=== PATIENT | female | born 1965 | race Two or more races ===

== ENCOUNTER 2017-06-27 09:46 | Emergency (ER) | payer MEDICAID, OTHER ==
[~2017-06-27] VITALS: Ht 154.9 cm; Wt 86.6 kg
[2017-06-27 11:49] VITALS: BP 167/99
[2017-06-27] MEDS ORDERED: cefTRIAXone SOD 1,000 MG VL IM ONE (13:00)
== END 2017-06-27 13:36 | disposition home or self-care (01) ==
LOC: ER 09:46
DX: H66.92 Otitis media, unspecified, left ear (principal); F17.210 Nicotine dependence, cigarettes, uncomplicated; Z98.51 Tubal ligation status
CPT/HCPCS: 96372; 99283; J0696

== ENCOUNTER 2020-01-14 10:28 | Emergency (ER) | payer OTHER ==
[~2020-01-14] VITALS: Ht 157.5 cm; Wt 92.5 kg
[2020-01-14] MEDS ORDERED: ceFAZolin 1GM/50ML 50 ML IV ONE (11:36)
[2020-01-14] MEDS ORDERED: TETRACAINE HCL 0.5% OPTH(EYE) SOLN 4ML RIGHTEYE ONE (13:30)
[2020-01-14] MEDS ORDERED: FLUORESCEIN SOD 1 MG TEST STRIP RIGHTEYE ONE (13:30)
[2020-01-14 13:48] VITALS: BP 134/74
== END 2020-01-14 13:53 | disposition home or self-care (01) ==
LOC: ER 10:30
DX: H10.9 Unspecified conjunctivitis (principal)
CPT/HCPCS: 99283; J0690

== ENCOUNTER 2021-04-24 10:56 | Emergency (ER) | payer OTHER ==
[~2021-04-24] VITALS: Ht 157.5 cm; Wt 96.2 kg
[2021-04-24] MEDS ORDERED: MORPHINE SULFATE 4 MG/ML SYR/VIAL IV ONE (11:30)
[2021-04-24] MEDS ORDERED: SODIUM CHLORIDE 0.9% 500 ML IVB ONE (11:30)
[2021-04-24] MEDS ORDERED: ONDANSETRON HCL 4 MG/2 ML VIAL IV ONE (11:30)
[2021-04-24 12:04] LABS: Urine Bacteria NONE SEEN /hpf (None Seen); Urine Blood Negative /uL (Negative); Urine Mucus FEW (None Seen); Urine WBC 1 /hpf (0 - 5)
[2021-04-24 14:36] LABS: Basophils # (auto) 0.1 10 ^3/uL (0-0.2); Basophils % (auto) 1.4 % (0.0-2.0); Eosinophils # (auto) 0.3 10 ^3/uL (0-0.8); Eosinophils % (auto) 5.3 % (0.0-7.0); Hematocrit 40.6 % (36.0-46.0); Lymphocytes # (auto) 1.5 10 ^3/uL (0.4-5.4); Lymphocytes % (auto) 26.3 % (10.0-50.0); Mean Corpuscular Hemoglobin 27.5 pg (28.0-32.0); Mean Corpuscular Hgb Conc. 34.5 g/dL (32.0-36.0); Mean Corpuscular Volume 79.7 fL (80.0-100.0); Monocytes # (auto) 0.7 10 ^3/uL (0-1.3); Monocytes % (auto) 11.4 % (0.0-12.0); Neutrophils # (auto) 3.2 10 ^3/uL (1.6-8.6); Neutrophils % (auto) 55.6 % (37.0-80.0); Nucleated Red Blood Cells % 0.2 %; Platelet Count (auto) 338 10^3/uL (140-450); Red Cell Distribution Width 14.4 % (11.8-14.3); White Blood Cell 5.8 10^3/uL (4.4-10.8)
[2021-04-24 14:55] LABS: Albumin 4.2 g/dL (3.4-5.0); Calcium 9.5 mg/dL (8.5-10.1)
[2021-04-24 14:58] LABS: BUN/Creatinine Ratio 23.2; Bilirubin, Total 0.4 mg/dL (0.2-1.0); Total Protein 8.6 g/dL (6.4-8.2)
[2021-04-24 15:43] VITALS: BP 140/95
== END 2021-04-24 15:44 | disposition home or self-care (01) ==
LOC: ER 10:56
DX: R10.11 Right upper quadrant pain (principal); I10 Essential (primary) hypertension; E78.5 Hyperlipidemia, unspecified; F17.210 Nicotine dependence, cigarettes, uncomplicated; Z90.710 Acquired absence of both cervix and uterus; Z90.89 Acquired absence of other organs
CPT/HCPCS: 36415; 71046; 76705; 80053; 81001; 82150; 83690; 85025; 85049; 93005

== ENCOUNTER 2022-07-16 09:03 | Emergency (ER) | payer OTHER ==
[~2022-07-16] VITALS: Ht 157.5 cm; Wt 90.0 kg
[2022-07-16 09:40] VITALS: BP 164/100
[2022-07-16] MEDS ORDERED: KETOROLAC TROMETH 60MG/2ML VIAL IM ONE (09:45)
[2022-07-16] MEDS ORDERED: PRED20TA2 PO (10:12)
== END 2022-07-16 10:19 | disposition home or self-care (01) ==
LOC: ER 09:03
DX: S83.92XA Sprain of unspecified site of left knee, initial encounter (principal); I10 Essential (primary) hypertension; E78.5 Hyperlipidemia, unspecified; F17.210 Nicotine dependence, cigarettes, uncomplicated; Z90.710 Acquired absence of both cervix and uterus; Z90.89 Acquired absence of other organs; Z79.899 Other long term (current) drug therapy; X58.XXXA Exposure to other specified factors, initial encounter; Y93.89 Activity, other specified; Y92.89 Other specified places as the place of occurrence of the external cause; Y99.8 Other external cause status
CPT/HCPCS: 73562; 96372; 99283; J1885

== ENCOUNTER 2022-12-31 13:29 | Emergency (ER) | payer OTHER ==
[~2022-12-31] VITALS: Ht 157.5 cm; Wt 94.6 kg
[~2022-12-31 13:29] MED LIST: PRED20TA2 PO
[2022-12-31] MEDS ORDERED: cloNIDine HCL 0.1 MG TAB PO ONE (15:00)
[2022-12-31 15:20] LABS: Urine Bacteria NONE SEEN /hpf (None Seen); Urine Blood Negative /uL (Negative); Urine Specific Gravity 1.005 (1.001-1.035); Urine WBC 1 /hpf (0 - 5)
[2022-12-31 15:33] LABS: Basophils # (auto) 0.1 10 ^3/uL (0-0.2); Eosinophils # (auto) 0.1 10 ^3/uL (0-0.8); Hemoglobin 14.5 g/dL (12.2-16.2); Lymphocytes # (auto) 0.7 10 ^3/uL (0.4-5.4)
[2022-12-31 15:36] LABS: Basophils % (auto) 1.4 % (0.0-2.0); Eosinophils % (auto) 1.2 % (0.0-7.0); Hematocrit 44.2 % (36.0-46.0); Lymphocytes % (auto) 9.1 % (10.0-50.0); Mean Corpuscular Hemoglobin 25.4 pg (28.0-32.0); Mean Corpuscular Hgb Conc. 32.9 g/dL (32.0-36.0); Mean Corpuscular Volume 77.3 fL (80.0-100.0); Monocytes # (auto) 0.5 10 ^3/uL (0-1.3); Monocytes % (auto) 7.5 % (0.0-12.0); Neutrophils # (auto) 5.9 10 ^3/uL (1.6-8.6); Neutrophils % (auto) 80.8 % (37.0-80.0); Nucleated Red Blood Cells % 0.2 %; Red Blood Cells 5.72 10^6/uL (4.0-5.20); Red Cell Distribution Width 14.4 % (11.8-14.3); White Blood Cell 7.3 10^3/uL (4.4-10.8)
[2022-12-31 16:00] VITALS: BP 142/91
[2022-12-31 16:03] LABS: BUN/Creatinine Ratio 15.1; Calcium 9.9 mg/dL (8.5-10.1); Potassium 4.4 mmol/L (3.5-5.1)
[2022-12-31] MEDS ORDERED: BACDST PO (16:18)
[2022-12-31] MEDS ORDERED: LOSA-69 PO (16:18)
== END 2022-12-31 16:25 | disposition home or self-care (01) ==
LOC: ER 13:29
DX: I10 Essential (primary) hypertension (principal); N39.0 Urinary tract infection, site not specified; E78.5 Hyperlipidemia, unspecified; F17.210 Nicotine dependence, cigarettes, uncomplicated; Z90.89 Acquired absence of other organs; Z90.710 Acquired absence of both cervix and uterus; Z79.899 Other long term (current) drug therapy
CPT/HCPCS: 36415; 80048; 81001; 84484; 85025; 93005

== ENCOUNTER 2024-03-22 14:35 | Emergency (ER) | payer OTHER ==
[~2024-03-22] VITALS: Ht 157.5 cm; Wt 100.0 kg
[~2024-03-22 14:35] MED LIST changes: +BACDST PO; +LEVO500T91 PO; +LOSA-534 PO; +PRED10TA PO
[2024-03-22 15:36] LABS: Basophils # (auto) 0.1 10 ^3/uL (0-0.2); Basophils % (auto) 1.2 % (0.0-2.0); Eosinophils # (auto) 0.4 10 ^3/uL (0-0.8); Eosinophils % (auto) 4.2 % (0.0-7.0); Hematocrit 40.4 % (36.0-46.0); Hemoglobin 13.5 g/dL (12.2-16.2); Lymphocytes # (auto) 1.3 10 ^3/uL (0.4-5.4); Lymphocytes % (auto) 15.5 % (10.0-50.0); Mean Corpuscular Hemoglobin 27.5 pg (28.0-32.0); Mean Corpuscular Hgb Conc. 33.5 g/dL (32.0-36.0); Mean Corpuscular Volume 82.1 fL (80.0-100.0); Monocytes # (auto) 0.9 10 ^3/uL (0-1.3); Monocytes % (auto) 10.5 % (0.0-12.0); Neutrophils # (auto) 5.8 10 ^3/uL (1.6-8.6); Neutrophils % (auto) 68.6 % (37.0-80.0); Red Blood Cells 4.92 10^6/uL (4.0-5.20); Red Cell Distribution Width 14.8 % (11.8-14.3); White Blood Cell 8.4 10^3/uL (4.4-10.8)
[2024-03-22 15:45] LABS: Chloride 110 mmol/L (98-107); Potassium 3.7 mmol/L (3.5-5.1); Sodium 142 mmol/L (136-145)
[2024-03-22 15:46] LABS: Anion Gap 6 (5-15); Calcium 10.1 mg/dL (8.5-10.1); Carbon Dioxide 26 mmol/L (20-30)
[2024-03-22 15:51] LABS: BUN/Creatinine Ratio 10.5 (10.0-20.0); Blood Urea Nitrogen 9 mg/dL (9-23); Glucose 123 mg/dL (74-106)
[2024-03-22] MEDS ORDERED: IBUP-1455 PO (16:11)
[2024-03-22 17:24] VITALS: BP 139/75; PULSE 95; RESP 20; TEMP 98.5; O2SAT 100
[2024-03-22] MEDS: DexAMETHasone SOD PHOS 10MG/1ML VIAL INJ IM ONE (17:41)
[2024-03-22] MEDS: KETOROLAC TROMETH 60MG/2ML VIAL IM ONE (17:42)
== END 2024-03-22 17:47 | disposition home or self-care (01) ==
LOC: ER 14:35
DX: M25.561 Pain in right knee (principal); R60.9 Edema, unspecified; E11.9 Type 2 diabetes mellitus without complications; I10 Essential (primary) hypertension; F17.210 Nicotine dependence, cigarettes, uncomplicated; Z90.710 Acquired absence of both cervix and uterus; Z98.51 Tubal ligation status
CPT/HCPCS: 36415; 73562; 80048; 83880; 85025; 96372; 99284; J1100; J1885

== ENCOUNTER 2024-10-11 08:56 | Emergency (ER) | payer OTHER ==
[~2024-10-11] VITALS: Ht 157.5 cm; Wt 101.8 kg
[~2024-10-11 08:56] MED LIST changes: +IBUP-1455 PO
--- NOTE | 2024-10-11 09:25 | ED.PDOC ---
[place]. trauma (HPI) HPI Comments 59 year old female presents to the ED with chief complaint of fall. Patient reports that she had been showering around 4am when she begun to experience dizziness, lost balance, then fell, injuring her left hand, left forearm, and back. Patient relays that she is now unable to stand without dizziness. Patient states she now has some SOB and mild leg swelling that she has noticed since onset of symptoms. Patient denies any chest pain, cough, N/V/D, dizziness, headache, or fever. Chief Complaint: Fall Injury Time Seen by MD: 09:22 Primary Care Provider: ADRIANNA Reviewed notes: Nurses Notes, Medications, Allergies Allergies: Coded Allergies: NO KNOWN ALLERGIES (Unverified , 03/22/15) Home Meds Active Scripts Levofloxacin Hemihydrate (LEVOFLOXACIN) 500 Mg Tab, 500 MG PO DAILY for 7 Days, #7 MG Prov:CATALINO RAMIREZ MD 10/11/24 Ibuprofen Micronized (Ibuprofen) 800 Mg Tab, 800 MG PO Q8HP PRN, #20 TAB Prov:DESIRE MOHAMUD 03/22/24 Prednisone (Prednisone) 10 Mg Tab, 10 MG PO DAILY for 7 Days, #7 MG Prov:CATALINO RAMIREZ MD 06/15/23 Levofloxacin Hemihydrate (LEVAQUIN 500 MG) 500 Mg Tab, 1 TAB PO DAILY, #10 TAB Prov:CATALINO RAMIREZ MD 06/15/23 Losartan Potassium (Losartan Potassium) 50 Mg Tab, 1 TAB PO DAILY, #30 TAB 5 Refills Prov:DAYSI DELGADO 12/31/22 Sulfamethoxazole W/Trimethopri (Bactrim Ds Tablet) 1 Tab Tb, 1 TAB PO BID for 5 Days, #10 TAB Prov:DAYSI DELGADO 12/31/22 Prednisone (Prednisone) 20 Mg Tab, 40 MG PO DAILY, #20 MG Prov:DAYSI DELGADO 07/16/22 Information Source: Patient Mode of Arrival: Wheelchair Severity: Moderate Timing: Hours Duration: Since onset Prehospital treatment: None Location: Back, (L) Forearm, (L) Hand Location of laceration: None Mechanism: Fall Past Medical History PAST MEDICAL HISTORY: High Lipids, HTN Past Medical History (Other): Sarcoidosis Surgical History: , Hysterectomy, Tonsillectomy, Tubal Ligation HOME CARE AIDE History: No Pertinent HOME CARE AIDE History Family History Family History: Family hx of DM, Family hx of heart travis Social History Smoker: Cigarettes Alcohol: Occasionally Drugs: Denies Drug Use Lives In: Home Constitutional: denies: chills, diaphoresis, fatigue, fever, malaise, sweats, weakness, others EENTM: denies: blurred vision, double vision, ear bleeding, ear discharge, ear drainage, ear pain, ear ringing, eye pain, eye redness, hearing loss, mouth pain, mouth swelling, nasal discharge, nose bleeding, nose congestion, nose pain, photophobia, tearing, throat pain, throat swelling, voice changes, others Respiratory: reports: shortness of breath; denies: cough, hemoptysis, orthopnea, SOB at rest, SOB with excertion, stridor, wheezing, others Cardiovascular: reports: edema (Bilateral legs); denies: chest pain, dizzy spells, diaphoresis, Dyspnea on exertion, irregular heart beat, left arm pain, lightheadedness, palpitations, PND, syncope, others Gastrointestinal: denies: abdomen distended, abdominal pain, blood streaked bowels, constipated, diarrhea, dysphagia, difficulty swallowing, hematemesis, melena, nausea, poor appetite, poor fluid intake, rectal bleeding, rectal pain, vomiting, others Genitourinary: denies: abnormal vagina bleeding, burning, dyspareunia, dysuria, flank pain, frequency, hematuria, incontinence, pain, , vagina discharge, urgency, others Neurological: reports: dizziness; denies: fainting, headache, left sided numbness, left sided weakness, numbness, paresthesia, pre-existing deficit, right sided numbness, right sided weakness, seizure, speech problems, tingling, tremors, weakness, others Musculoskeletal: reports: back pain, others (Left hand and forearm pain); denies: gout, joint pain, joint swelling, muscle pain, muscle stiffness, neck pain Integumetry: denies: bruises, change in color, change in hair/nails, dryness, laceration, lesions, lumps, rash, wounds, others Allergic/Immunocompromised: denies: Difficulty Healing, Frequent Infections, Hives, Itching, others Hematologic/Lymphatic: denies: anemia, blood clots, easy bleeding, easy bruising, swollen glands, others Endocrine: denies: excessive hunger, excessive sweating, excessive thirst, excessive urination, flushing, intolerance to cold, intolerance to heat, unexplained weight gain, unexplained weight loss, others Psychiatric: denies: anxiety, bipolar disorder, depression, hopeless, panic disorder, schizophrenia, sleepless, suicidal, others All Other Systems: Reviewed and Negative Physical Exam General Appearance: Moderate Distress, Normal HEENT: Normal ENT Inspection, PERRL/EOMI Neck: Full Range of Motion, Non-Tender, Normal, Normal Inspection Respiratory: Chest Non-Tender, Lungs Clear, No Accessory Muscle Use, No Respiratory Distress, Normal Breath Sounds Cardiovascular: No Edema, No JVD, No Murmur, No Gallop, Normal Peripheral Pulses, Regular Rate/Rhythm Breast Exam: Deferred Gastrointestinal: No Organomegaly, Non Tender, No Pulsatile Mass, Normal Bowel Sounds, Soft Genitalia: Deferred Pelvic: Deferred Rectal: Deferred Extremities: No calf tenderness, Normal capillary refill, Normal range of motion, Non-tender, Pedal edema Musculoskeletal : Apperance: Normal Neurologic: Alert, search engine marketing manager II-XII nml as Tested, No Motor Deficits, Normal Affect, Normal Mood, No Sensory Deficits Cerebellar Function: NOT DONE Reflexes: NOT DONE Skin: Dry, Normal Color, Warm Peripheral Pulses: 3+ Radial (R), 3+ Radial (L) Lymphatic: No Adenopathy Was a procedure done? Was a procedure done?: No Differential Diagnosis Multiple Trauma: Fractures, Abrasions X-Ray, Labs, Meds, VS Vital Signs Date Time Temp Pulse Resp B/P (MAP) Pulse Ox O2 Delivery O2 Flow Rate FiO2 10/11/24 13:40 74 18 103/56 (72) 94 10/11/24 12:14 98.2 76 16 103/50 (67) 97 98.2 10/11/24 10:45 79 16 95 Room Air* 0 21 10/11/24 10:02 90 18 98 Room Air 10/11/24 10:02 90 18 97/50 (66) 98 10/11/24 09:17 91 10/11/24 09:16 98.6 92 17 85/47 (60) 98 Lab Test 10/11/24 10:53 10/11/24 09:30 Range/Units Urine Color Yellow Yellow Urine Clarity Turbid H Clear Urine pH 5.5 5.0-9.0 Urine Specific [place] 1.019 1.001-1.035 Urine Protein 1+ H Negative Urine Ketones Negative Negative Urine Blood Negative Negative /uL Urine Nitrite Negative Negative Urine Bilirubin Negative Negative Urine Urobilinogen Normal Negative mg/dL Urine Leukocyte Esterase 2+ Negative /uL Urine RBC 2 0 - 4 /hpf Urine WBC 14 0 - 5 /hpf Urine Squamous Epithelial Cells Mod <5 /hpf Urine Bacteria Few H None Seen /hpf Urine Hyaline Casts Many 0 - 2 /lpf Urine Mucus Few None Seen Urine Glucose Normal Normal mg/dL White Blood Count 5.7 4.4-10.8 10^3/uL Red Blood Count 5.34 H 4.0-5.20 10^6/uL Hemoglobin 15.1 12.2-16.2 g/dL Hematocrit 44.8 36.0-46.0 % Mean Corpuscular Volume 83.8 80.0-100.0 fL Mean Corpuscular Hemoglobin 28.4 28.0-32.0 pg Mean Corpuscular Hemoglobin Concent 33.8 32.0-36.0 g/dL Red Cell Distribution Width 15.1 H 11.8-14.3 % Platelet Count 207 140-450 10^3/uL Mean Platelet Volume 9.2 6.9-10.8 fL Neutrophils (%) (Auto) 67.0 37.0-80.0 % Lymphocytes (%) (Auto) 17.1 10.0-50.0 % Monocytes (%) (Auto) 15.1 H 0.0-12.0 % Eosinophils (%) (Auto) 0.2 0.0-7.0 % Basophils (%) (Auto) 0.6 0.0-2.0 % Neutrophils # (Auto) 3.8 1.6-8.6 10 ^3/uL Lymphocytes # (Auto) 1.0 0.4-5.4 10 ^3/uL Monocytes # (Auto) 0.9 0-1.3 10 ^3/uL Eosinophils # (Auto) 0 0-0.8 10 ^3/uL Basophils # (Auto) 0 0-0.2 10 ^3/uL Nucleated Red Blood Cells 0.0 % Sodium Level 136 136-145 mmol/L Potassium Level 3.6 3.5-5.1 mmol/L Chloride Level 103 98-107 mmol/L Carbon Dioxide Level 22 20-31 mmol/L Anion Gap 11 5-15 Blood Urea Nitrogen 30 H 9-23 mg/dL Creatinine 1.93 H 0.550-1.02 mg/dL Glomerular Filtration Rate Calc 30 >90 mL/min BUN/Creatinine Ratio 15.5 10.0-20.0 Serum Glucose 122 H 74-106 mg/dL Calcium Level 10.1 8.7-10.4 mg/dL Current Medications Medications (Trade) Dose Ordered Sig/Isabel Route Start Time Stop Time Status Last Admin Sodium Chloride 500 ml @ 500 mls/hr Q1H ONCE IV 10/11/24 09:30 10/11/24 10:29 DC 10/11/24 10:02 Acetaminophen (Tylenol Tablet) 650 mg ONCE ONCE PO 10/11/24 10:15 10/11/24 10:16 DC 10/11/24 10:11 Sodium Chloride 1,000 ml @ 1,000 mls/hr Q1H ONCE IV 10/11/24 14:00 10/11/24 14:59 DC 10/11/24 14:15 Ceftriaxone Sodium 50 ml @ 100 mls/hr ONCE ONCE IV 10/11/24 14:00 10/11/24 14:29 DC 10/11/24 14:00 Sodium Chloride 1,000 ml @ 1,000 mls/hr Q1H ONCE IV 10/11/24 14:15 10/11/24 15:14 DC 10/11/24 15:39 Patient alert. Status post fall. Denies any symptoms prior to the fall. Chronic history. Blood pressure on low. Saturation pristine on room air. History of hypertension CHF. Denies shortness a breath. Denies chest pain. No leg swelling. No calf tenderness. Establish intravenous access. Was given fluids. Reviewed her previous visit. Explained to the patient. Continue cardiac monitoring. CT Abd/Pel: FINDINGS: There is no evidence of acute intracranial hemorrhage, extra-axial collection, mass effect, midline shift, herniation or hydrocephalus. The ventricles, sulci and cisterns are age appropriate. The moore-white differentiation is intact. Patchy periventricular and subcortical white matter hypoattenuation is nonspecific but may be related to small vessel ischemic disease. The visualized paranasal sinuses and mastoid air cells are clear. The surrounding soft tissues and osseous structures are unremarkable. IMPRESSION: 1. No CT evidence of acute intracranial abnormality. Images Reviewed?: Images reviewed and evaluated by me Time of 1ST Reevaluation: 10:22 Reevaluation 1ST: Unchanged Patient Education/Counseling: Diagnosis, Treatment Family Education/Counseling: No Family Present Additional Information I reviewed the following notes from patient's past medical encounters: 03/22/24 for right knee pain The following tests were ordered, and results were reviewed by me: Head CT, EKG, BMP, UA, CBC I reviewed and agreed with the following test results read by other providers: Head CT. I discussed treatment and results with medical personnel. Departure 1 Departure Time of Disposition: 09:50 Impression: Primary Impression: Hypotension Qualified Codes: I95.9 - Hypotension, unspecified Additional Impression: Musculoskeletal pain Disposition: ADMITTED INPATIENT Admit to: Med Surg Condition: Guarded e-Prescriptions Levofloxacin Hemihydrate (LEVOFLOXACIN) 500 Mg Tab 500 MG PO DAILY for 7 Days, #7 MG Prov: CATALINO RAMIREZ MD 10/11/24 Critical Care Note Critical Care Time?: Yes (45 min-critical care time only) Stability Stability form required: No Heart Score Heart Score: Heart Score Response (Comments) Value History N/A 0 EKG N/A 0 Age N/A 0 Risk Factors N/A 0 Troponin N/A 0 Total 0 I personally scribed for CATALINO RAMIREZ MD ([email or web address]) on 10/11/24 at 09:25. Electronically submitted by Diogenes Quiroz ([email or web address]). I personally scribed for CATALINO RAMIREZ MD ([email or web address]) on 10/11/24 at 10:18. Electronically submitted by Diogenes Quiroz ([email or web address]). I personally scribed for CATALINO RAMIREZ MD ([email or web address]) on 10/11/24 at 15:42. Electronically submitted by Diogenes Quiroz ([email or web address]). I personally scribed for CAATLINO RAMIREZ MD ([email or web address]) on 10/11/24 at 16:06. Electronically submitted by Diogenes Quiroz ([email or web address]). CATALINO RAMIREZ MD Oct 11, 2024 09:25
--- NOTE | 2024-10-11 09:50 | DVH ---
EXAM: CT HEAD WITHOUT CONTRAST INDICATION: dizzy TECHNIQUE: CT of the head without intravenous contrast. Radiation Dose Information: CT Dose: CTDI volume is 54.7 mGy. Dose-length product is 876.99 mGy*cm The dose indicators for CT are the volume Computed Tomography (CT) Dose Index (CTDIvol) and the Dose Length Product (DLP), and are measured in units of mGy and mGy-cm, respectively. These indicators are not patient dose, but values generated from the CT scanner acquisition factors. The report includes radiation exposure data for exposures received during this examination. COMPARISON: None FINDINGS: There is no evidence of acute intracranial hemorrhage, extra-axial collection, mass effect, midline s hift, herniation or hydrocephalus. The ventricles, sulci and cisterns are age appropriate. The moore-white differentiation is intact. Patchy periventricular and subcortical white matter hypoattenuation is nonspecific but may be related to small vessel ischemic disease. The visualized paranasal sinuses and mastoid air cells are clear. The surrounding soft tissues and osseous structures are unremarkable. IMPRESSION: 1. No CT evidence of acute intracranial abnormality. HS:Y
[2024-10-11] MEDS: SODIUM CHLORIDE 0.9% 500 ML IV ONE (10:02)
[2024-10-11 10:11] LABS: Basophils # (auto) 0 10 ^3/uL (0-0.2); Basophils % (auto) 0.6 % (0.0-2.0); Eosinophils # (auto) 0 10 ^3/uL (0-0.8); Eosinophils % (auto) 0.2 % (0.0-7.0); Hematocrit 44.8 % (36.0-46.0); Hemoglobin 15.1 g/dL (12.2-16.2); Lymphocytes % (auto) 17.1 % (10.0-50.0); Mean Corpuscular Hemoglobin 28.4 pg (28.0-32.0); Mean Corpuscular Hgb Conc. 33.8 g/dL (32.0-36.0); Mean Corpuscular Volume 83.8 fL (80.0-100.0); Monocytes # (auto) 0.9 10 ^3/uL (0-1.3); Monocytes % (auto) 15.1 % (0.0-12.0); Neutrophils # (auto) 3.8 10 ^3/uL (1.6-8.6); Platelet Count (auto) 207 10^3/uL (140-450); Red Blood Cells 5.34 10^6/uL (4.0-5.20); Red Cell Distribution Width 15.1 % (11.8-14.3); White Blood Cell 5.7 10^3/uL (4.4-10.8)
[2024-10-11] MEDS: ACETAMINOPHEN 325 MG TAB PO ONE ×2 (10:11→17:35)
[2024-10-11 10:16] LABS: Chloride 103 mmol/L (98-107); Potassium 3.6 mmol/L (3.5-5.1); Sodium 136 mmol/L (136-145)
[2024-10-11 10:17] LABS: Anion Gap 11 (5-15); Calcium 10.1 mg/dL (8.7-10.4); Carbon Dioxide 22 mmol/L (20-31)
--- NOTE | 2024-10-11 10:20 | DVH ---
INDICATION: Trauma COMPARISON: None TECHNIQUE: 3 views of the thoracic spine were obtained. FINDINGS: Thoracic kyphosis. 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 Diffuse osteopenia. No acute fracture. The imaged thorax and abdomen are grossly unremarkable. IMPRESSION: No acute fracture. 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
--- NOTE | 2024-10-11 10:21 | DVH ---
INDICATION: Trauma COMPARISON: None TECHNIQUE: 4 views of the lumbar spine were obtained. FINDINGS: The lumbar vertebral alignment is normal. The intervertebral disc spaces are well-maintained. No significant facet arthropathy is noted. No acute fracture, vertebral compression deformity or aggressive osseous lesions. The paravertebral soft tissues are grossly unremarkable. IMPRESSION: No acute fracture.
[2024-10-11 10:22] LABS: BUN/Creatinine Ratio 15.5 (10.0-20.0)
[2024-10-11 10:40] LABS: Blood Urea Nitrogen 30 mg/dL (9-23); Glucose 122 mg/dL (74-106)
[2024-10-11 10:45] VITALS: PULSE 79; RESP 16; O2SAT 95
[2024-10-11 12:45] LABS: Urine Bacteria FEW /hpf (None Seen); Urine Blood Negative /uL (Negative); Urine Clarity Turbid (Clear); Urine Color Yellow (Yellow); Urine Hyaline Cast MANY /lpf (0 - 2); Urine Mucus FEW (None Seen); Urine Protein, UAD 1+ (Negative); Urine Specific Gravity 1.019 (1.001-1.035); Urine Urobilinogen Normal (Negative); Urine WBC 14 /hpf (0 - 5); Urine pH 5.5 (5.0-9.0)
[2024-10-11] MEDS: cefTRIAXone 1GM/50ML D5W 50 ML IV ONE ×2 (14:00→14:15)
[2024-10-11] MEDS: SODIUM CHLORIDE 0.9% 1,000 ML IV ONE ×4 (14:15→18:39)
--- NOTE | 2024-10-11 15:31 | DVHDS2 ---
New Physician D'charge PN Admitting Diagnosis Admitting Diagnosis dizziness Discharge Diagnosis eric uti Operations or Procedures none Reason(s) For Hospitalization Surgery Hospital Course 59 F coming to ER for dizziness. She states she had a fall at home. When she arrived her BP was in the 90s systolic and her UA showed to be dirty for UTI and she had an ERIC with Cr 1.9. I was consulted by the ER for further care. I reviewed the patients chart and lab data and her WBC was noted to be 5k, her chemistry panel revealed a Cr of 1.9 and several months ago her Cr was 1.0. Her UA showed UTI. Head Ct imaging showed no acute findings and CXR was clear and CT L spine revealed DJD with no acute findings. Given her ERIC and hypotension the patient was volume depleted as her baseline Cr is around 1.0 and today it was slightly bumped at 1.9. She received a total of 2.5 liters NS bolus in ER and her BP improved. She also received IV Rocephin 1g x1 for UTI. She will be given a prescription for levaquin PO for home to complete course for UTI and she has been instructed to follow up with her PCP and hydrate herself with fluids at home. Instructed to return to ER or call 911 should her symptoms worsen. Patient to be discharged home with [facility] to arrange for outpt follow up. Discussed with ER physician and all parties in agreement with plan. Treatment Plan Discharge Condition of Discharge Good Disposition Home Discharge Instructions Diet: Cardiac 2g Na,low cholest Activity: Light activity Medications: see med sheet Follow Up Care Discharge Statement: "Patient was advised to return to the ER or call 911 if any headaches, dizziness, shortness of breath, chest pain, abdominal pain, bleeding, fevers, or worsening of medical condition. Patient was counseled about treatment plan, medications, possible side effects, patientverbalized understanding. All questions were answered to the best of my ability. This discharge took greater then 30 minutes in planning, reviewing documentation, counseling the patient, and discussing with other team members." BENJA WEST MD Oct 11, 2024 15:31
[2024-10-11 17:00] VITALS: TEMP 98.4
[2024-10-11 20:00] VITALS: BP 103/64; PULSE 72; RESP 18; O2SAT 96
[2024-10-12] MEDS ORDERED: LEVO500T91 PO (05:44)
--- NOTE | 2024-10-12 06:38 | ECG ---
[facility] Test Date: 2024-10-11 Test Time: 09:17:32 Pat Name: LINDA PORRAS Department: ER Room: Gender: F Regulator Inspector: DR ANN: [id number] Requested By: CATALINO RAMIREZ Order Number: [id number] Reading MD: Orlando Bell Measurements Intervals [place] Rate: 91 P: 74 MA: 176 QRS: 99 QRSD: 81 T: 26 QT: 335 QTc: 413 Interpretive Statements Sinus rhythm Borderline right axis deviation Low voltage, precordial leads Electronically Signed On 10-12-2024 10:30:08 PST by Orlando Bell Please click the below link to view image of tracing.
== END 2024-10-11 20:01 | disposition home or self-care (01) ==
LOC: ER 08:56
DX: I95.9 Hypotension, unspecified (principal); M79.18 Myalgia, other site; R42 Dizziness and giddiness; I10 Essential (primary) hypertension; F17.210 Nicotine dependence, cigarettes, uncomplicated; D86.9 Sarcoidosis, unspecified; Z79.52 Long term (current) use of systemic steroids; Z79.899 Other long term (current) drug therapy; Z90.710 Acquired absence of both cervix and uterus
CPT/HCPCS: 36415; 70450; 72070; 72110; 80048; 81001; 85025; 93005; 96361; 96365; 99285; J0696; J7030; J7040